=== PATIENT | male | born 1990 | race Caucasian/White ===

== ENCOUNTER 2018-03-11 18:57 | Emergency (ER) | payer OTHER ==
[2018-03-11] MEDS ORDERED: NS 1,000 ML IV ONE (19:25)
--- NOTE | 2018-03-11 19:25 | EDPHY ---
H & P Time Seen by Provider: 03/11/18 19:21 HPI/ROS: CHIEF COMPLAINT: Passed out twice HISTORY OF PRESENT ILLNESS: 28-year-old man presents after having passed out twice today. He worked out his usual 45 min high intensity interval workout before going to work, then went snowboarding between 2:30 and 4:00 p.m. he was standing at the bar at [place] [id number] and said "I think I am going to blackout "and then proceeded to pass out and fall onto the floor. He was only out for a 2nd and no seizure activity in got up and then it happened again, he hit his head on the 2nd time. He only had a smoothie and an orange today, did not have lunch or breakfast which isn't typical for him. Right now he just has a little soreness on his head, but otherwise feels fine. No chest pain or shortness of breath. REVIEW OF SYSTEMS: Eye: no change in vision ENT: no sore throat Cardiac: no chest pain or syncope Pulmonary: no cough or SOB Abdomen: no vomiting, diarrhea, abdominal pain Musculoskeletal: no back pain or neck pain Skin: no rash Neuro: HPI no weakness or numbness in extremities Constitutional: no fever : no urinary symptoms A comprehensive 10 point review of systems is otherwise negative aside from elements mentioned in the history of present illness. PAST MEDICAL HISTORY: Negative Family history: Negative for dysrhythmia or venous thromboembolism. Social history: A little bit of alcohol tonight General Appearance: Alert and conversant, cooperative. Eyes: No scleral icterus. Pupils equal reactive extraocular motion intact. ENT, Mouth: Normal mucous membranes. No hemotympanum or bruising behind the ear. Less than 1 cm left parietal hematoma. Respiratory: Normal respiratory effort, breath sounds equal, lungs are clear to auscultation. Cardiovascular: Regular rate and rhythm. No murmur. Gastrointestinal: Abdomen is soft and non tender. Neurological: Alert, face symmetric, normal motor and sensory in extremities. Speech fluent, no pronator drift, [id number] normal bilaterally. Skin: Warm and dry, no rashes. Musculoskeletal: No midline spinal tenderness. Psychiatric: Not agitated. Emergency Department course/MDM: Much more likely to be vasovagal then dysrhythmia or seizure or venous thromboembolism or stroke. Precipitating factor was likely also related to having very little to eat or drink today with extra exertion and exercise. Does not have high risk red flags for his head injury. Cervical spine cleared clinically. IV fluids and food, discharge if labs are normal. EKG is sinus rhythm. Smoking Status: Never smoked Constitutional: Initial Vital Signs Temperature (C) 36.7 C 03/11/18 19:08 Heart Rate 78 03/11/18 19:08 Respiratory Rate 16 03/11/18 19:08 Blood Pressure 111/69 03/11/18 19:08 O2 Sat (%) 94 03/11/18 19:08 O2 Delivery Mode Room Air Allergies/Adverse Reactions: No Known Allergies Allergy (Unverified 03/11/18 19:07) Home Medications: Medication Instructions Recorded NK [No Known Home Meds] 03/11/18 Medical Decision Making - Diagnostics EKG Interpretation: 12-lead EKG interpreted by me; official reading is in computer system. My interpretation is sinus rhythm rate 66, otherwise normal. - Data Points Laboratory Results: Laboratory Results 03/11/18 19:20 03/11/18 19:20 03/11/18 03/11/18 03/11/18 19:24 19:20 19:20 WBC 7.17 10^3/uL 10^3/uL (3.80-9.50) RBC 4.81 10^6/uL 10^6/uL (4.40-6.38) Hgb 15.8 g/dL g/dL (13.7-17.5) Hct 44.6 % % (40.0-51.0) MCV 92.7 fL fL (81.5-99.8) MCH 32.8 pg pg (27.9-34.1) MCHC 35.4 g/dL g/dL (32.4-36.7) RDW 12.0 % % (11.5-15.2) Plt Count 194 10^3/uL 10^3/uL (150-400) MPV 10.8 fL fL (8.7-11.7) Neut % (Auto) 50.1 % % (39.3-74.2) Lymph % (Auto) 41.3 % % (15.0-45.0) [place] % (Auto) 7.0 % % (4.5-13.0) Eos % (Auto) 0.8 % % (0.6-7.6) Baso % (Auto) 0.7 % % (0.3-1.7) Nucleat RBC Rel Count 0.0 % % (0.0-0.2) Absolute Neuts (auto) 3.59 10^3/uL 10^3/uL (1.70-6.50) Absolute Lymphs (auto) 2.96 10^3/uL 10^3/uL (1.00-3.00) Absolute Monos (auto) 0.50 10^3/uL 10^3/uL (0.30-0.80) Absolute Eos (auto) 0.06 10^3/uL 10^3/uL (0.03-0.40) Absolute Basos (auto) 0.05 10^3/uL 10^3/uL (0.02-0.10) Absolute Nucleated RBC 0.00 10^3/uL 10^3/uL (0-0.01) Immature Gran % 0.1 % % (0.0-1.1) Immature Gran # 0.01 10^3/uL 10^3/uL (0.00-0.10) Sodium 136 mEq/L mEq/L (135-145) Potassium 3.9 mEq/L mEq/L (3.5-5.2) Chloride 102 mEq/L mEq/L (97-110) Carbon Dioxide 23 mEq/l mEq/l (22-31) Anion Gap 11 mEq/L mEq/L (6-14) BUN 19 mg/dL mg/dL (7-23) Creatinine 1.1 mg/dL mg/dL (0.7-1.3) Estimated GFR > 60 Glucose 133 mg/dL H mg/dL (70-100) Calcium 9.6 mg/dL mg/dL (8.5-10.4) POC Troponin I 0.00 ng/mL ng/mL (0.00-0.08) Medications Given: Discontinued Medications Sodium Chloride (Ns) 1,000 mls @ 0 mls/hr IV EDNOW ONE; Wide Open PRN Reason: Protocol Stop: 03/11/18 19:26 Last Admin: 03/11/18 19:39 Dose: 1,000 mls Point of Care Test Results: Chemistry 03/11/18 19:24 POC Troponin I 0.00 ng/mL ng/mL (0.00-0.08) Departure - Departure Disposition: Home, Routine, Self-Care Clinical Impression: Syncope Qualifiers: Syncope type: vasovagal syncope Qualified Code(s): R55 - Syncope and collapse Condition: Good Instructions: Syncope (ED) Additional Instructions: Your labs were normal which included electrolytes, kidney function, red blood cell count, and blood sugar. Referrals: NONE *PRIMARY CARE P,. [Primary Care Provider] - As per Instructions (Anup BOLAND)
[2018-03-11 19:45] LABS: PLATELET COUNT 194 10^3/uL (150-400)
--- NOTE | 2018-03-11 19:47 | CPEKG ---
Test Reason : OPEN Blood Pressure : / mmHG Vent. Rate : 066 BPM Atrial Rate : 067 BPM P-R Int : 167 ms QRS Dur : 099 ms QT Int : 392 ms P-R-T Axes : 043 012 011 degrees QTc Int : 411 ms Sinus rhythm Confirmed by Kyree Wilcox ([id number]) on 03/11/2018 7:46:26 PM Referred By: Confirmed By:Kyree Wilcox
[2018-03-11 20:26] VITALS: BP 110/65
== END 2018-03-11 20:35 | disposition home or self-care (01) ==
DX: S00.03XA Contusion of scalp, initial encounter (principal); R55 Syncope and collapse; W19.XXXA Unspecified fall, initial encounter; Y92.9 Unspecified place or not applicable; Y93.9 Activity, unspecified; Y99.9 Unspecified external cause status
CPT/HCPCS: 84484-ER